=== PATIENT | female | born 1970 | race Caucasian/White ===

== ENCOUNTER 2020-06-16 11:48 | Day surgery (SDC) | payer MEDICARE, MEDICAID ==
[2020-06-14 12:58] VITALS: BMI 25.2
[~2020-06-16 11:48] MED LIST: PROPOFOL 200 MG/20 ML VIAL ONE
== END 2020-06-16 15:20 | disposition home or self-care (01) ==
LOC: SDC 11:48
PROVIDERS: ATTEND Internal Medicine Gastroenterology
PROC: 0DJD8ZZ Inspection of Lower Intestinal Tract, Via Natural or Artificial Opening Endoscopic (ICD-10-PCS; principal; 2020-06-16)
DX: Z12.11 Encounter for screening for malignant neoplasm of colon (principal); K55.20 Angiodysplasia of colon without hemorrhage; K64.8 Other hemorrhoids; Q90.9 Down syndrome, unspecified; I48.91 Unspecified atrial fibrillation; I05.0 Rheumatic mitral stenosis; N18.9 Chronic kidney disease, unspecified; K75.81 Nonalcoholic steatohepatitis (NASH); M85.80 Other specified disorders of bone density and structure, unspecified site; E07.9 Disorder of thyroid, unspecified; Z79.82 Long term (current) use of aspirin; Z79.899 Other long term (current) drug therapy; Z88.8 Allergy status to other drugs, medicaments and biological substances
CPT/HCPCS: J2704